=== PATIENT | male | born 1955 | race Caucasian/White ===

== ENCOUNTER 2021-03-01 13:44 | Emergency (ER) | payer MEDICARE, OTHER ==
[~2021-03-01] VITALS: Ht 177.8 cm; Wt 72.6 kg
--- NOTE | 2021-03-01 14:00 | NUR ---
BIBS FOR C/O PAIN IN BACK OF RIGHT LEG AND KNEE X 3 DAYS,CONCERNED FOR DVT. RATES PAINS 5/10. WILL CONTINUE TO MONITOR THE PATIENT.
[2021-03-01] MEDS ORDERED: IBUP-1957 PO (15:19)
--- NOTE | 2021-03-01 15:24 | NUR ---
Patient discharged to home in stable condition. Written and verbal after care instructions given. Patient verbalizes understanding of instruction.
[2021-03-01 15:25] VITALS: BP 144/83
== END 2021-03-01 15:25 | disposition home or self-care (01) ==
LOC: ER 13:48
DX: M79.604 Pain in right leg (principal); I25.2 Old myocardial infarction; Z98.890 Other specified postprocedural states; Z60.2 Problems related to living alone
CPT/HCPCS: 93971-TC